=== PATIENT | female | born 1980 | race African-American/Black ===

== ENCOUNTER 2020-10-07 17:33 | Emergency (ER) | payer MEDICAID ==
[~2020-10-07] VITALS: Ht 167.6 cm; Wt 60.8 kg
--- NOTE | 2020-10-07 17:33 | NUR ---
PT BIB SELF C/O CHEST PAIN STARTED 8AM THIS MORNING NON RADIATING. 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 WILL CONTINUE TO MONITOR.
--- NOTE | 2020-10-07 17:41 | NUR ---
dr fish at bedside for eval.
--- NOTE | 2020-10-07 17:50 | NUR ---
BLOOD DRAWN AND SENT TO LAB.
[2020-10-07] MEDS ORDERED: ACETAMINOPHEN ES 500 MG TABLET ONE (17:51)
[2020-10-07] MEDS ORDERED: IBUPROFEN 600 MG TABLET ONE (17:51)
[2020-10-07] MEDS: ACETAMINOPHEN ES 500 MG TABLET PO ONE (17:54)
[2020-10-07 17:55] LABS: BASOPHILS # (AUTO) 0.1 /CMM (0.0-0.2); BASOPHILS % (AUTO) 2.3 % (0.0-2.0); HEMATOCRIT 35 % (33-45); HEMOGLOBIN 11.6 g/dL (11.5-14.8); LYMPHOCYTES # (AUTO) 1.3 /CMM (0.8-4.8); LYMPHOCYTES % (AUTO) 24.3 % (20.0-44.0); MEAN CORPUSCULAR HGB CONC 34 g/dl (31.0-36.0); MEAN CORPUSCULAR VOLUME 98 fL (82-100); MONOCYTES # (AUTO) 0.3 /CMM (0.1-1.30); MONOCYTES % (AUTO) 6.3 % (2.0-12.0); NEUTROPHILS # (AUTO) 3.5 /CMM (1.8-8.9); NEUTROPHILS % (AUTO) 66.1 % (43.0-81.0); PLATELET COUNT (AUTO) 309 /CMM (150-450); RED BLOOD CELL COUNT(AUTO) 3.51 MIL/uL (4.0-5.2); WHITE BLOOD COUNT (AUTO) 5.4 K/uL (4.3-11.0)
[2020-10-07] MEDS: IBUPROFEN 600 MG TABLET PO ONE (17:56)
[2020-10-07 18:09] LABS: CALCIUM, SERUM 9.4 mg/dL (8.5-10.1); CARBON DIOXIDE 28 mmol/L (21-32); CHLORIDE 103 mmol/L (98-107); CREATININE 0.8 mg/dL (0.6-1.3); GLUCOSE 87 mg/dL (74-106); POTASSIUM 4.2 mmol/L (3.5-5.1); SODIUM SERUM 140 mmol/L (136-145); UREA NITROGEN, BLOOD 12 mg/dL (7-18)
[2020-10-07] MEDS ORDERED: IBUP-1957 PO (18:32)
[2020-10-07 18:48] VITALS: BP 115/60
--- NOTE | 2020-10-07 18:48 | NUR ---
Patient discharged to home in stable condition. Written and verbal after care instructions given. Patient verbalizes understanding of instruction.
== END 2020-10-07 18:48 | disposition home or self-care (01) ==
LOC: ER 17:41
DX: R07.81 Pleurodynia (principal); R00.1 Bradycardia, unspecified
CPT/HCPCS: 36415; 71045-TC; 80048-TC; 84484-TC; 85025-TC